=== PATIENT | female | born 1970 | race Asian ===

== ENCOUNTER 2017-06-11 08:22 | Outpatient (CLI) | payer BC | END 2017-06-11 22:46 | disposition home or self-care (01) | LOC: MAMMO 08:22 | DX: Z12.31 Encounter for screening mammogram for malignant neoplasm of breast (principal) ==

== ENCOUNTER 2018-09-04 08:17 | Outpatient (CLI) | payer BC | END 2018-09-04 19:36 | disposition home or self-care (01) | LOC: MAMMO 08:17 | DX: Z12.31 Encounter for screening mammogram for malignant neoplasm of breast (principal) ==

== ENCOUNTER 2020-10-20 08:33 | Outpatient (CLI) | payer BC | END 2020-10-20 19:47 | disposition home or self-care (01) | LOC: MAMMO 08:33 | PROVIDERS: ATTEND Obstetrics & Gynecology | DX: Z12.31 Encounter for screening mammogram for malignant neoplasm of breast (principal) ==

== ENCOUNTER 2022-07-25 09:17 | Outpatient (CLI) | payer BC | END 2022-07-25 19:24 | disposition home or self-care (01) | LOC: MAMMO 09:17 | PROVIDERS: ATTEND Obstetrics & Gynecology | DX: Z12.31 Encounter for screening mammogram for malignant neoplasm of breast (principal) ==